=== PATIENT | male | born 1985 | race Caucasian/White ===

== ENCOUNTER 2024-05-17 05:58 | Emergency (ER) | payer BC, SELFPAY ==
[2024-05-17 06:00] VITALS: BP 140/84
[2024-05-17 06:07] VITALS: BMI 30.4
[2024-05-17 06:32] VITALS: BP 135/82
--- NOTE | 2024-05-17 06:32 | ED.GENMED ---
History of Present Illness
<Adebayo Moreno MD, Resident - Last Filed: 05/17/24 09:22>
General
Chief Complaint: Abdominal Pain
Source: patient
Time Seen by Provider: 05/17/24 06:05
History of Present Illness
History of Present Illness:
39-year-old male, Mr. Rohit Rueda presented to the ER reporting left lower quadrant pain that started a week ago. Patient reports that the pain to be intermittent, crampy, nonradiating, 2/10 in intensity and is associated with diarrhea since 1
week. Patient reports he had an episode of diverticulitis in 2020 and consequently had a perforation and he was managed conservatively with antibiotics. Patient reports that the symptoms are similar to his prior episode, and so transition to
liquid diet 4 days after symptoms started this time. Patient also reports that his stools appeared black for the past 1 week. No history of fever/chills, headache, lightheadedness, chest pain, SOB, hematuria, hematochezia. No change in the
abdominal pain and diarrhea with the diet. No history of recent travel, eating outside in the restaurant, exposure to sick contacts. Patient has a history of chronic use of NSAIDs for his neck pain and lower back pain.
Past History
<Adebayo Moreno MD, Resident - Last Filed: 05/17/24 09:22>
Social History
Tobacco: Smoker (3/4 pack/day)
Alcohol: Daily (3-5 drinks per day)
Drug: None
Personal:
Living: with family
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
Review of Systems
<Adebayo Moreno MD, Resident - Last Filed: 05/17/24 09:22>
Review of Systems
All Other Systems: ROS reviewed and negative except as documented in HPI and ROS
Phy Exam
<Adebayo Moreno MD, Resident - Last Filed: 05/17/24 09:22>
Physical Exam
Physical Exam:
GEN: Well appearing, NAD, WDWN
Eyes: PERRLA, EOMs intact, no scleral icterus
HENT: NCAT, oral mucosa moist, no JVD, no cervical adenopathy.
Lungs: CTAB, no wheezes, rales, rhonchi, normal chest wall excursion
Cardiac: RRR, no M/R/G, no peripheral edema. Radial pulses 2+ bilat
Abdomen: Soft, tender to palpation in the left lower quadrant, ND, NABS, no masses or hepatosplenomegaly, no CVAT, inguinal hernial sites�normal bilaterally.
Neuro: AO x 3, no focal deficits to BUE/BLE, normal sensation throughout
Skin: No rashes, petechiae. Normal color, no pallor or jaundice.
Psych: Calm, cooperative, proper hygiene
Course
<Veneela Souleymane Moreno MD, Resident - Last Filed: 05/17/24 09:22>
Orders/Labs/Results
Orders:
Orders
05/17/24 06:28
0.9% Sodium Chloride 250 ml [Nss] 250 ml IV BOLUS
05/17/24 06:29
CT Abd/Pel (IV only)-DH only Urgent
Comment:
Reason For Exam: Abdominal pain
05/17/24 06:32
CMP [Comprehensive Metabolic Panel] Urgent
Complete Blood Count/With Diff Urgent
05/17/24 06:37
0.9% Sodium Chloride 1000 ml [Nss] 1,000 ml IV BOLUS
Abnormal Lab Results
05/17/24
06:32
MCH 31.5 H pg
(27.0-31.0)
MPV 10.5 H fL
(7.4-10.4)
05/17/24 06:32
05/17/24 06:32
Vital Signs
Initial and Last Documented VS:
Initial Vital Signs
Temp Pulse Resp BP Pulse Ox
97.8 F 54 20 140/84 100
05/17/24 06:00 05/17/24 06:00 05/17/24 06:00 05/17/24 06:00 05/17/24 06:00
Last Documented Vital Signs
Temp Pulse Resp BP Pulse Ox
97.8 F 70 19 135/82 98
05/17/24 06:00 05/17/24 06:32 05/17/24 06:32 05/17/24 06:32 05/17/24 06:32
<Ravindra Francisco, - Last Filed: 05/17/24 06:54>
Orders/Labs/Results
Orders:
Orders
05/17/24 06:28
0.9% Sodium Chloride 250 ml [Nss] 250 ml IV BOLUS
05/17/24 06:29
CT Abd/Pel (IV only)-DH only Urgent
Comment:
Reason For Exam: Abdominal pain
05/17/24 06:32
CMP [Comprehensive Metabolic Panel] Urgent
Complete Blood Count/With Diff Urgent
05/17/24 06:37
0.9% Sodium Chloride 1000 ml [Nss] 1,000 ml IV BOLUS
Abnormal Lab Results
05/17/24
06:32
MCH 31.5 H pg
(27.0-31.0)
MPV 10.5 H fL
(7.4-10.4)
05/17/24 06:32
05/17/24 06:32
Vital Signs
Initial and Last Documented VS:
Initial Vital Signs
Temp Pulse Resp BP Pulse Ox
97.8 F 54 20 140/84 100
05/17/24 06:00 05/17/24 06:00 05/17/24 06:00 05/17/24 06:00 05/17/24 06:00
Last Documented Vital Signs
Temp Pulse Resp BP Pulse Ox
97.8 F 70 19 135/82 98
05/17/24 06:00 05/17/24 06:32 05/17/24 06:32 05/17/24 06:32 05/17/24 06:32
<Adebayo Moreno MD, Resident - Last Filed: 05/17/24 09:22>
MDM/Problems Addressed
Differential Diagnosis Includes:
Diverticulitis, gastroenteritis, IBD, IBS, upper GI bleeding from peptic ulcer disease.
MDM/Problems Addressed:
CBC-unremarkable
CMP-unremarkable
Patient started on IV fluids
CT abdomen/pelvis showed evidence of mild sigmoid diverticulitis with no perforation/abscess.
Patient is clinically stable and asymptomatic, can be discharged home.
Patient is given discharge instructions on diverticulitis and prescription for antibiotics sent to the pharmacy.
Advised to return to the ER with worsening symptoms.
Patient advised to follow-up with GI physician outpatient for melena.
<Adebayo Moreno MD, Resident - Last Filed: 05/17/24 09:22>
*Critical Care Note
Total Time (30-74mins, 75-104mins- exclusive of procedures): Not Applicable
ED Attending Note
<Adebayo Moreno MD, Resident - Last Filed: 05/17/24 09:22>
-
Portions of this chart may have been created with voice recognition software.� Occasional wrong word or��sound alike� substitutions may have occurred due to the inherent limitations of voice recognition software.
<Ravindra Francisco DO - Last Filed: 05/17/24 06:54>
ED Attending Note
Patient seen and examined by attending physician: Yes
I performed a history and physical exam of patient and discussed management with resident, I reviewed resident's note and agree with documented findings and plan of care.: Yes
ED Attending Note:
Seen with resident examined independently 39-year-old male left lower abdominal pain history of diverticulitis with perforation treated conservatively, nontoxic-appearing minimal pain also has had some black stools he states a few days ago after
some NSAID use, will check labs CT scan, ultimately may require endoscopy as an outpatient
Discharge Plan
Departure
Patient Disposition: Home (Routine Discharge)
Date of Disposition: 05/17/24
Time of Disposition: 09:11
Patient with high blood pressure during this ER visit?: No
Discharge Problem:
Diverticulitis
Instructions: Diverticulitis (DC)
Prescriptions:
New
levofloxacin 500 mg tablet
500 mg PO DAILY Qty: 10 0RF
metronidazole 500 mg tablet
500 mg PO TID Qty: 30 0RF
Referrals:
Dedra Cross MD [Active] -
Mikel Soto MD [Family Provider] -
Activity Restrictions/Additional Instructions:
Low residue diet for 2 weeks.
Start antibiotics as prescribed for 10 days.
Interventions
Interventions:
*Risk Screen - Suicide Last Done: 05/17/24 06:00
*General Assessment Last Done: 05/17/24 06:05
*Neglect/Abuse Screening Last Done: 05/17/24 06:00
ED- Fall Risk Assessment Last Done: 05/17/24 06:05
KZ-Fkluag-Evhpmikvin Assessment Last Done: 05/17/24 06:05
Discharge Date and Time
Print Language: MOSOTHO
[2024-05-17 06:39] LABS: % Basophils 0.5 % (0-2); % Eosinophils 1.2 % (0-6); % Immature Granulocytes 0.5 % (0-0.5); % Lymphocytes 42.1 % (20.5-51.1); % Monocytes 6.5 % (1.7-9.3); % Neutrophils 49.2 % (42.2-75.2); Absolute Eosinophils 0.1 10^3/uL (0-0.7); Absolute Lymphocytes 2.5 10^3/uL (1.2-3.4); Absolute Monocytes 0.4 10^3/uL (0.1-0.6); Hematocrit 47.7 % (39.0-52.0); Hemoglobin 16.5 g/dL (13.0-18.0); Mean Corp Hgb Conc. 34.6 g/dL (33.0-37.0); Mean Corpuscular Hgb 31.5 pg (27.0-31.0); Mean Platelet Volume 10.5 fL (7.4-10.4); Nucleated Red Blood Cells % 0 % (-); Platelet Count 175 10^3/uL (130-400); Red Blood Cell Count 5.24 10^6/uL (4.70-6.10); Red Cell Dist. Width 12.4 % (11.5-14.5)
[2024-05-17] MEDS: NSS 1000 IV (06:40)
[2024-05-17 06:51] LABS: ALT (SGPT) 15 U/L (0-50); AST (SGOT) 23 U/L (17-59); Albumin 4.3 g/dl (3.5-5.0); Blood Urea Nitrogen 9 mg/dl (9-20); Calcium 9.6 mg/dl (8.4-10.2); Carbon Dioxide 26 mmol/L (22-30); Estimated Creatinine Clearance > 125 ml/min; Glucose 89 mg/dl (70-99); Potassium 4.7 mmol/L (3.5-5.1); Total Bilirubin 1.1 mg/dl (0.2-1.3); Total Protein 6.8 g/dl (6.3-8.2); eGFR > 60.00
[2024-05-17 07:34] LABS: Alkaline Phosphatase 74 U/L (38-126); Chloride 104 mmol/L (98-107); Sodium 137 mmol/L (135-145)
[2024-05-17 10:09] VITALS: BP 131/69
== END 2024-05-17 10:11 | disposition home or self-care (01) ==
LOC: EMR 05:58
PROVIDERS: EMERGENCY PHYSICIAN Emergency Medicine; FAMILY PHYSICIAN Internal Medicine
DX: K57.32 Diverticulitis of large intestine without perforation or abscess without bleeding (principal); F17.210 Nicotine dependence, cigarettes, uncomplicated
CPT/HCPCS: 99285; 96360; 74177; 80053; 85025; Q9967

== ENCOUNTER 2024-12-12 06:24 | Day surgery (SDC) | payer BC, SELFPAY | END 2024-12-12 10:55 | disposition home or self-care (01) | LOC: GI 06:24 | PROVIDERS: ATTENDING PHYSICIAN Internal Medicine Gastroenterology | DX: Z12.11 Encounter for screening for malignant neoplasm of colon (principal); K57.30 Diverticulosis of large intestine without perforation or abscess without bleeding; K92.1 Melena; K22.89 Other specified disease of esophagus; K26.9 Duodenal ulcer, unspecified as acute or chronic, without hemorrhage or perforation; D12.0 Benign neoplasm of cecum; D12.2 Benign neoplasm of ascending colon; K62.1 Rectal polyp; K29.50 Unspecified chronic gastritis without bleeding; K31.89 Other diseases of stomach and duodenum; Z80.0 Family history of malignant neoplasm of digestive organs | CPT/HCPCS: 45385; 45380; 43239; 88305; 88342 ==

== ENCOUNTER 2025-02-24 06:29 | Day surgery (SDC) | payer OTHER, SELFPAY | END 2025-02-24 15:53 | disposition home or self-care (01) | LOC: GI 06:29 | PROVIDERS: ATTENDING PHYSICIAN Internal Medicine Gastroenterology | DX: K26.9 Duodenal ulcer, unspecified as acute or chronic, without hemorrhage or perforation (principal); K22.89 Other specified disease of esophagus; K31.89 Other diseases of stomach and duodenum; K26.3 Acute duodenal ulcer without hemorrhage or perforation | CPT/HCPCS: 43239; 88305 ==

== ENCOUNTER → 2025-06-25 06:48 | Outpatient (REF) | payer OTHER, SELFPAY | LOC: MRI 06:48 | PROVIDERS: ATTENDING PHYSICIAN Student in an Organized Health Care Education/Training Program; FAMILY PHYSICIAN Internal Medicine | DX: M54.16 Radiculopathy, lumbar region (principal) | CPT/HCPCS: 72148 ==

== ENCOUNTER 2025-07-13 00:33 | Emergency (ER) | payer OTHER, SELFPAY ==
[2025-07-13] VITALS (8 sets, daily range): BP systolic 120–182; BP diastolic 79–96; BMI 29.1
[2025-07-13] MEDS: TORADOL 30 MG IM (03:59)
[2025-07-13] MEDS: DECADRON 10 MG PO (04:00)
[2025-07-13] MEDS: VALIUM 5 MG PO (04:00)
--- NOTE | 2025-07-13 05:44 | ED.GENMED ---
Addendum entered and electronically signed by Rohit Price PA-C 07/13/25 07:46:
Late entry due to patient care. Made aware by nursing staff that patient's pain had not and he was unable to stand. I reevaluated the patient, L5 small disc herniation scheduled for an epidural steroid injection next week. Will give dose of
oxycodone and reassess
On reassessment approximately 1 hour post oxycodone hydration patient reported improvement was able to ambulate. Will prescribe oxycodone was advised to avoid use of cyclobenzaprine concurrently.
Original Note:
History of Present Illness
General
Chief Complaint: Back Pain
Source: patient and spouse
Exam Limitations: none
Time Seen by Provider: 07/13/25 03:32
Nursing documentation reviewed up to this point in time: agreed with
History of Present Illness
History of Present Illness:
40-year-old male presenting to the emergency department today with concerns of progressive back pain. Has known significant herniated disc at L5 and S1 does have ongoing pain to the area does have cortisone injection scheduled for next week with
his back doctor. Has noticed some comfort into his left leg more recently. Denies any changes in bowel movements or any urinary incontinence. Denies any numbness or weakness into the legs.
Past History
Social History
Tobacco: Smoker (3/4 pack/day)
Alcohol: Daily (3-5 drinks per day)
Drug: None
Personal:
Living: with family
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
Review of Systems
Review of Systems
Allergies reviewed?: Yes
All Other Systems: ROS reviewed and negative except as documented in HPI and ROS
Phy Exam
Physical Exam
Physical Exam:
GENERAL: Alert , in no apparent distress
EYE: pupils equal and reactive
NECK: Supple, no significant adenopathy.
ENT: o/p clr, mmm.
CARDIAC: Regular rate and rhythm .
LUNGS: Clear breath sounds bilaterally, no acute respiratory distress, no wheezes/rales/rhonchi
ABDOMEN: Soft, without focal tenderness, no r/g, no cvat
NEUROLOGICAL: Alert and oriented, no focal neuro deficits
SKIN: Warm and dry, skin intact.
MUSCULOSKELETAL: No edema, well perfused.
PSYCH: Normal and appropriate interaction.
Course
Orders/Labs/Results
Orders:
Orders
07/13/25 03:42
Dexamethasone [Decadron] 10 mg PO NOW STA
Diazepam [Valium] 5 mg PO NOW STA
Ketorolac [Toradol] 30 mg IM NOW STA
Vital Signs
Initial and Last Documented VS:
Initial Vital Signs
Temp Pulse Resp BP Pulse Ox
97 F 138 28 182/96 100
07/13/25 00:42 07/13/25 00:42 07/13/25 00:42 07/13/25 00:42 07/13/25 00:42
Last Documented Vital Signs
Temp Pulse Resp BP Pulse Ox
98.4 F 69 17 134/92 96
07/13/25 00:59 07/13/25 05:15 07/13/25 05:00 07/13/25 05:00 07/13/25 05:15
MDM/Problems Addressed
MDM/Problems Addressed:
40-year-old male presenting to the emergency department today with concerns of low back pain with radiation down the left leg. Here initially was tachycardic but improved after medications. Patient did have a recent MRI that I reviewed that showed
significant disc disease and chronic back problems. At this point symptoms are down the left leg with cauda equina or spinal epidural abscess. He was given medications here with significant improvement of symptoms. He was able to sleep here for
multiple hours. Otherwise return precautions given.
*Pulse Oximetry
SaO2: 96
Patient hypoxic: no (96)
*Critical Care Note
Total Time (30-74mins, 75-104mins- exclusive of procedures): Not Applicable
ED Attending Note
-
Portions of this chart may have been created with voice recognition software.� Occasional wrong word or��sound alike� substitutions may have occurred due to the inherent limitations of voice recognition software.
Discharge Plan
Departure
Patient Disposition: Home (Routine Discharge)
Date of Disposition: 07/13/25
Time of Disposition: 05:48
Patient with high blood pressure during this ER visit?: No
Condition: Good
Covid-19: Not Applicable
Discharge Problem:
Back pain
Instructions: Low Back Pain (DC)
Prescriptions:
New
cyclobenzaprine 10 mg tablet
10 mg PO HS PRN (Reason: muscle spasm) Qty: 7 0RF
prednisone 20 mg tablet
40 mg PO DAILY 4 Days Qty: 8 0RF
No Action
cyclobenzaprine 10 mg Tablet
10 mg PO HS PRN (Reason: pain)
atorvastatin 20 mg Tablet
20 mg PO DAILY
meloxicam 15 mg Tablet
15 mg PO DAILY
bupropion HCl [Wellbutrin] 100 mg Tablet
100 mg PO BID
pantoprazole [Protonix] 40 mg Tablet,Delayed Release (Dr/Ec)
40 mg PO DAILY
Referrals:
Tang Adam MD [Family Provider, Internal Medicine]
Activity Restrictions/Additional Instructions:
You came to the emergency department today with concerns of ongoing back discomfort. Here you were started on a steroid as muscle relaxer. Please take these medications and follow-up closely with your back doctor. Return for any worsening, new or
concerning symptoms.
Interventions
Interventions:
*Risk Screen - Suicide Last Done: 07/13/25 00:42
*General Assessment Last Done: 07/13/25 00:52
*Neglect/Abuse Screening Last Done: 07/13/25 00:42
*ED- Fall Risk Assessment Last Done: 07/13/25 00:52
*ED COVID-19 Vaccine History Last Done: 07/13/25 00:52
*ED Influenza Vaccine History Last Done: 07/13/25 00:52
ED-Musculoskeletal Assessment Last Done: 07/13/25 00:52
Discharge Date and Time
Print Language: TURKMEN
[2025-07-13] MEDS: ROXICODONE 5 MG PO (06:36)
--- NOTE | 2025-07-13 06:42 | EDRN ---
This RN was assisting patient to prepare for discharge and into wheeelchair when patient had episode of severe back pain radiating down into left leg. Pt grimacing and in obvious pain. pt states he is uncomfortable going home in this amount of pain
and would like to get back into bed. JENSEN Boles notified and comes to bedside to evaluate patient. Plan is to receive oxycodone and reevaluate in an hour. If not resolved, possibility of being admitted.
== END 2025-07-13 07:53 | disposition home or self-care (01) ==
LOC: EMR 00:33
PROVIDERS: EMERGENCY PHYSICIAN Emergency Medicine; FAMILY PHYSICIAN Internal Medicine
DX: M54.50 Low back pain, unspecified (principal); F17.210 Nicotine dependence, cigarettes, uncomplicated; Z87.39 Personal history of other diseases of the musculoskeletal system and connective tissue
CPT/HCPCS: 96372; 99284

== ENCOUNTER 2025-07-23 18:20 | Observation (INO) | payer OTHER, SELFPAY ==
[2025-07-23 13:20] VITALS: BP 162/102
[2025-07-23 16:00] VITALS: BP 122/70
[2025-07-23] MEDS: TORADOL 30 MG IV (16:01)
[2025-07-23] MEDS: DECADRON 10 MG IV (16:01)
[2025-07-23] MEDS: DILAUDID 1 MG IV ×2 (16:02→17:51)
--- NOTE | 2025-07-23 16:20 | ED.GENMED ---
History of Present Illness
General
Chief Complaint: Back Pain
Source: patient, records, spouse and previous radiology exam
Exam Limitations: none
Time Seen by Provider: 07/23/25 14:56
Nursing documentation reviewed up to this point in time: agreed with
History of Present Illness
History of Present Illness:
40-year-old male acute on chronic low back pain left side into his buttock, had MRI recently showed herniated disc, seen in the ER had steroid pack and some oxycodone with some relief, followed up at [facility] had an epidural steroid injection told to
get appoint with the surgeon has not had that yet, no fevers, having trouble with activities of daily living, but no bowel or bladder incontinence he states he is not sure if he is totally emptying his bladder though, denies fevers
Past History
Social History
Tobacco: Smoker (3/4 pack/day)
Alcohol: Daily (3-5 drinks per day)
Drug: None
Personal:
Living: with family
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
Phy Exam
Physical Exam
Physical Exam:
Physical Exam
General: no apparent distress, not acutely ill
Neck: No jaundice
Heart: s1/s2 regular rate and rhythm, no murmur. equal radial pulses.
Lungs: no acute respiratory distress. clear bilaterally
Neuro: alert and oriented. Painful straight leg raise on the left at 30 degrees, deep tendon reflexes are equal
Skin: no rash
Psychiatric: well kept. interactive and cooperative
Extremities: no edema.
Course
Orders/Labs/Results
Orders:
Orders
07/23/25 15:19
Bladder Scan- Treatment ONCE
Dexamethasone Sod Phosphate [Decadron] 10 mg IV NOW STA
HYDROmorphone [Dilaudid] 1 mg IV NOW STA
Ketorolac [Toradol] 30 mg IV NOW STA
07/23/25 17:16
Urinalysis Reflex To Culture Urgent
Date Specimen was Collected: 07/23/25
Time Specimen was Collected: 17:14
Urine Microscopic Reflex Cult Urgent
07/23/25 17:23
HYDROmorphone [Dilaudid] 1 mg IV NOW STA
Ondansetron Injectable [Zofran] 4 mg IV NOW STA
Abnormal Lab Results
07/23/25
17:16
Urine Ketones 2+ A
(Negative)
Urine Albumin (Reflex) 1+ A
(Neg - Trace)
Vital Signs
Initial and Last Documented VS:
Initial Vital Signs
Temp Pulse Resp BP Pulse Ox
97.9 F 105 18 162/102 99
07/23/25 13:20 07/23/25 13:20 07/23/25 13:20 07/23/25 13:20 07/23/25 13:20
Last Documented Vital Signs
Temp Pulse Resp BP Pulse Ox
97.9 F 66 18 122/70 99
07/23/25 13:20 07/23/25 16:00 07/23/25 16:00 07/23/25 16:00 07/23/25 16:20
MDM/Problems Addressed
Differential Diagnosis Includes:
Radiculopathy herniated disc acute on chronic back pain
MDM/Problems Addressed:
Back pain
Chronic conditions affecting care:
Back pain
Acute Exacerbation and/or Progression of Chronic Illness:
Back pain
*Radiology
Radiology exam reviewed: radiology read reviewed
*Pulse Oximetry
SaO2: 99
Oxygen Mode of Delivery: Room air
Patient hypoxic: no
*Critical Care Note
Total Time (30-74mins, 75-104mins- exclusive of procedures): Not Applicable
Update Note
Update Note:
Update, MRI report reviewed, will try to get him feeling better,
Will try to facilitate outpatient spine surgery follow-up
542p update patient still with pretty severe pain despite steroids IV Dilaudid
ED Attending Note
-
Portions of this chart may have been created with voice recognition software.� Occasional wrong word or��sound alike� substitutions may have occurred due to the inherent limitations of voice recognition software.
Discharge Plan
Departure
Patient Disposition: Home (Routine Discharge)
Date of Disposition: 07/23/25
Time of Disposition: 17:16
Patient with high blood pressure during this ER visit?: No
Condition: Good
Covid-19: Not Applicable
Discharge Problem:
Low back pain
Instructions: Low Back Pain (DC), Radiculopathy (DC)
Prescriptions:
New
oxycodone 10 mg tablet
10 mg PO Q4H PRN (Reason: Pain) Qty: 20 0RF
No Action
cyclobenzaprine 10 mg Tablet
10 mg PO HS PRN (Reason: pain)
atorvastatin 20 mg Tablet
20 mg PO DAILY
meloxicam 15 mg Tablet
15 mg PO DAILY
bupropion HCl [Wellbutrin] 100 mg Tablet
100 mg PO BID
pantoprazole [Protonix] 40 mg Tablet,Delayed Release (Dr/Ec)
40 mg PO DAILY
cyclobenzaprine 10 mg tablet
10 mg PO HS PRN (Reason: muscle spasm) Qty: 7 0RF
prednisone 20 mg tablet
40 mg PO DAILY 4 Days Qty: 8 0RF
oxycodone 5 mg tablet
5 mg PO Q8H PRN (Reason: Pain) Qty: 10 0RF
Referrals:
Tang Adam MD [Family Provider, Internal Medicine]
José Manuel Emmanuel MD [Active, Orthopedics] - Next open appointment
Interventions
Interventions:
*Risk Screen - Suicide Last Done: 07/23/25 13:21
*General Assessment Last Done: 07/23/25 13:21
*Neglect/Abuse Screening Last Done: 07/23/25 13:21
*ED COVID-19 Vaccine History Last Done: 07/23/25 13:21
*ED Influenza Vaccine History Last Done: 07/23/25 13:21
ED-Musculoskeletal Assessment Last Done: 07/23/25 14:48
Discharge Date and Time
Print Language: ESTONIAN
[2025-07-23 17:29] LABS: Urine Character Clear (Clear)
[2025-07-23 17:41] LABS: Urine Red Blood Cell 0-2 /HPF (0-2); Urine White Cell 0-2 /HPF (0-5)
--- NOTE | 2025-07-23 17:46 | W.PN.UPDATE ---
Update Note
Progress Note Update
TThis note serves as an addendum to the H&P by dental front office assistant ELLA�
Sonia Flintstone
HPI
40M Current smoker , Daily ETOF use disorder HX Chr LBP , recemt MRI as of 06/25 POS for L4/5 herniated disc wiht Lt L5 root displacememt. He was seen at ER initiated medrol dose pack and Oxycodone, s/p EST with Papa and pending for appointment
with spine surgeon.
- seen at ER due to ADL dysfunction
- denied B & B incontinence
- No fever
Relevant VS
Temp Pulse Resp BP Pulse Ox
97.9 F 66 18 122/70 99
07/23/25 13:20 07/23/25 16:00 07/23/25 16:00 07/23/25 16:00 07/23/25 16:20
PE
Gen: NAD
HEENT: anicteric
Neck: supple
Lungs: CTA
Cor: RR S1 S2
Abdomen:�soft NT NG
ACTIVITIES COUNSELOR: POS Lt SLR at 30 degreee. Intact b/l and symmetric DTR
MS: no motor weakness
Relevant Data
06/25/25 MR Lumbar Without Contrast
- At L4/5, there is a broad-based disc protrusion centered in the left paracentral region.
This measures 7 mm in diameter. this causes moderate flattening of thecal sac and posterior displacement of left L5 nerve root. In addition, there is extruded disc material tracking superiorly from the disc space in the left paracentral region.
Extruded disc material measures 1.2 cm in AP diameter. It causes severe flattening of thecal sac and interacts with the left L4 nerve root. Superimposed annular bulge and facet osteoarthritis combine to cause moderate bilateral foraminal stenosis
At L5/S1, there is a broad-based disc protrusion centered in the midline. This measures 6 mm in diameter. It causes moderate flattening of thecal sac. It contacts medial aspect of each S1 nerve root. Superimposed annular bulge and facet
osteoarthritis combine to cause moderate left foraminal stenosis
NO PRIOR hospitalist admission:
ASSESSMENT & PLAN
L4/5 Herniated disc with posterior displacement of left L5 nerve root with with Lt sided radiculopathy
Intractable LBP despite S/p Medrol dose pack + L4/5 EPS on 07/17/25
- POS Lt SLR @ 30 degree
- partially emptying bladder
- ADL dysfunction
- Bladder scan protocol
- Prednisone short tapering course:
- 60mg daily for 5 days then taper
- 40 mg daily for 2 days
- 20mg daily for 2 days
- 10mg daily for 2 days
- PRN Analgesia per pain ladder
- BW regime
- on SYSTEMS SUPPORT SPECIALIST PO PPI
- N Surgery consulted
ETOH use disorder
- Daily 2-3 drinks twice per weel - last drink was 2 weeks ago
- Observe WDS
Nicotine use disorder - 1/2 PPD
- quit 2 weeks ago
HX Diverticulitis with microperforation
DVT Px: SQH
Full
OBS MS
--- NOTE | 2025-07-23 17:49 | HPS.HSE ---
Family Physician
-
Family Physician: Tang Adam MD
Chief Complaint
-
Back pain lumbar left buttocks down to left ankle
History of Present Illness
40-year-old male complaining of acute on chronic lower back pain left-sided to his buttocks. He had outpatient MRI showing herniated disc had been seen in the ER on 07/13/2025 given steroid pack and oxycodone with some relief. He reports following
up at [facility] had an epidural steroid injection on 07/17/2025 but was advised to get appointment with a surgeon to address his herniated disc. 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 He states he has been lying on his back at home unable to do anything due to the pain. He denies bowel or bladder loss, fever, chills, chest pain, palpitations, shortness breath, cough, abdominal pain, nausea, vomiting, diarrhea.
He has past medical history of herniated disc, former smoker, diverticulitis with micro Perf, gastric ulcers, depression, HLD.
Medical History
Past Medical History
Past Medical History: Reports Other
Additional Past Medical History:
herniated disc
former smoker
diverticulitis with micro Perf
gastric ulcers
depression
HLD
Past Surgical History: Reports Other
Additional Past Surgical History:
Tonsillectomy
Colonoscopy
Endoscopy
Social History
Tobacco: Former Smoker (Half a pack a day x 25 years quit 3 weeks ago June 2025)
Alcohol: Occasional (2-3 drinks 2 to 3 days a week last drink was 2 weeks ago)
Personal:
Living: With Family
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
Family History
Family History: Other (Mother history of skin cancer diverticulitis, father history of diverticulitis)
Allergies / Home Medications
Allergies reflects when Allergies were last updated in [facility].
Home Medications with original date entered in [facility]
Allergy/Medication List:
Allergies
Allergy/AdvReac Type Severity Reaction Status Date / Time
No Known Allergies Allergy Verified 07/23/25 13:20
Home Medications
atorvastatin 20 mg tablet 20 mg PO DAILY High Cholesterol 07/13/25
cyclobenzaprine 10 mg tablet 10 mg PO HS mild pain 07/13/25
meloxicam 15 mg tablet 15 mg PO QPM mild pain 07/13/25
pantoprazole 40 mg tablet,delayed release (Protonix) 40 mg PO DAILY gerd 07/13/25
acetaminophen 500 mg tablet (Tylenol Extra Strength) 500 mg PO Q6HPRN PRN mild pain 07/23/25
bupropion HCl 150 mg 24 hr tablet, extended release (Wellbutrin XL) 150 mg PO DAILY Depression 07/23/25
oxycodone 5 mg tablet 5 mg PO Q8HPRN PRN severe Pain 07/23/25
simethicone 80 mg chewable tablet 160 mg PO DAILYPRN PRN gas pains 07/23/25
Review of Systems
-
History Source: Patient and Family
A 12 point ROS was completed and negative except as noted: Yes
Constitutional: Denies Fever or Chills
EENT: Denies Sore Throat or Runny Nose
Respiratory: Denies Cough or Trouble Breathing
Cardiac: Denies Chest Pain, Diaphoresis, Palpitations or Syncope
Abdomen/GI: Denies Abdominal Pain, Nausea, Vomiting, Diarrhea, Constipated or Bloody Stools
: Reports Difficulty Voiding; Denies Dysuria, Frequency, Flank Pain, Incontinence, Urgency or Bleeding
Musculoskeletal: Reports Other (Pain left buttocks down to left leg); Denies Joint Pain or Edema
Skin: Denies Itching or Rash
Neurological: Denies Dizzy, Headache or Weakness
Endocrine: Reports No Symptoms
Hematologic/Lymphatic: Reports No Symptoms
Psych: Reports Calm
Physical Exam
Vital Signs
Vital Signs
Temp Pulse Resp BP Pulse Ox
97.9 F 66 18 122/70 99
07/23/25 13:20 07/23/25 16:00 07/23/25 16:00 07/23/25 16:00 07/23/25 16:20
Physical Exam
General: Conversant; No Fever or Chills
HEENT: NormoCephalic, Anicteric, Moist mucous membranes, PERRLA, Fabrica Conjunctivae and No Ptosis
Respiratory: Clear; No Wheezes, Rales or Rhonchi
Cardiac: S1/S2 and Regular Rhythm; No Murmur, Rub, Gallop or Peripheral Edema
Breast: Deferred by me
GI: Soft, Non Tender, Non Distended, Normal Bowel Sounds and No Hepatosplenomegaly
Rectal: Deferred by Provider
Genito-urinary: Deferred by me
Musculoskeletal: No Clubbing, No Cyanosis, No Edema and Other (Tenderness left buttocks radiating down to ankle, sensation intact distal neurovascular +2 pedal pulse, +2 cap refill, limited leg lifting moving due to lower back/buttocks pain
left-sided)
Skin: Warm and Dry; No Rash
Neuro: AO x 3, Nonfocal/grossly intact, Cranial Nerves Intact and No Sensory Deficits; No Slurred Speech, Facial Droop, Tremors or Sedated
Psych: Calm
Data Reviewed
-
MRI: Report Reviewed by me
Lab Data: Labs Reviewed by me
Impression/Plan
-
Impression/plan:
Observation MedSurg
#Acute on chronic lower back pain left-sided secondary to herniated disc L4-L5, L5-S1 with slight urinary retention
-Status post lumbar epidural steroid injection 07/17/2025 by Papa
- Consult neurosurgery�Dr. Stafford
- IV Dilaudid, continue oxycodone 5 mg every 8 hours as needed, continue patient's Flexeril IV Zofran, bowel regimen
- IV dexamethasone 10 mg given in ER
- prednisone 60 mg x 5, 50mg x 5, 40mg x 5, 30mg x 5, 20mg x 5, 10mg x 5
-Continue patient's Protonix 40 mg daily
-Bladder scan protocol voided in ER residual bladder scan 300 cc
MRI 06/26/2025:At L4/5, there is a broad-based disc protrusion centered in the left paracentral region. This measures 7 mm in diameter. this causes moderate flattening of thecal sac and posterior displacement of
left L5 nerve root. In addition, there is extruded disc material tracking superiorly from the disc space in the left paracentral region.
Extruded disc material measures 1.2 cm in AP diameter. It causes severe flattening of thecal sac and interacts with the left L4 nerve root.
Superimposed annular bulge and facet osteoarthritis combine to cause moderate bilateral foraminal stenosis
At L5/S1, there is a broad-based disc protrusion centered in the midline. This measures 6 mm in diameter. It causes moderate flattening of thecal sac.
It contacts medial aspect of each S1 nerve root. Superimposed annular bulge and facet osteoarthritis combine to cause moderate left foraminal stenosis
#Former smoker
Quit approximately 3 weeks ago prior half a pack a day
#History gastric ulcer
-Continue Protonix 40 mg daily
#Depression
-Continue Wellbutrin 150 mg daily
#HLD
Atorvastatin 20 mg daily
#History of diverticulitis with microperforation
DVT prophylaxis
Subcu heparin
Full code
[2025-07-23] MEDS: ZOFRAN 4 MG IV (17:51)
[2025-07-23 20:00] VITALS: BP 141/68
[2025-07-23 21:44] VITALS: BP 141/96; BMI 27.9
[2025-07-23] MEDS: FLEXERIL 10 MG PO (22:16)
[2025-07-23] MEDS: HEPARIN 5000 UNITS SC (22:16)
--- NOTE | 2025-07-23 23:05 | PTCARENOTE ---
Receive pt from ER. Pt alert oriented X3, calm in no distress. Pt assisted to bed from wheelchair to bed in the room using a cane. Pt oriented to the room, call rojas within reach. Pt states that his back pain is tolerable now (2/10). Pt also states
that the ice pack is helping with the pain.VSS (T=98.1, HR=93, RR=16, CP=157/96, SpO2=96% on RA). Will continue to monitor the pt.
[2025-07-23 23:15] VITALS: BP 139/96
--- NOTE | 2025-07-23 23:28 | PTCARENOTE ---
Pt voids 450cc, bladder scan shows 77cc post void. Pt offers no complaints at this time.
[2025-07-24] MEDS: ROXICODONE 5 MG PO ×2 (00:36→10:37)
[2025-07-24] MEDS: DILAUDID 1 MG IV (05:35)
[2025-07-24 07:28] VITALS: BP 125/81
[2025-07-24] MEDS: MIRALAX 17 GRAMS PO (09:17)
[2025-07-24] MEDS: TYLENOL 650 MG PO (09:18)
[2025-07-24] MEDS: LIPITOR 20 MG PO (09:18)
[2025-07-24] MEDS: PROTONIX 40 MG PO (09:18)
[2025-07-24] MEDS: DELTASONE 60 MG PO (09:18)
[2025-07-24] MEDS: WELLBUTRIN XL (24 hour extended release) 150 MG PO (09:18)
[2025-07-24] MEDS: HEPARIN 5000 UNITS SC ×2 (09:19→21:49)
[2025-07-24 09:40] LABS: ALT (SGPT) 24 U/L (0-50); AST (SGOT) 20 U/L (17-59); Albumin 4.4 g/dl (3.5-5.0); Alkaline Phosphatase 60 U/L (38-126); Blood Urea Nitrogen 12 mg/dl (9-20); Calcium 9.5 mg/dl (8.4-10.2); Carbon Dioxide 26 mmol/L (22-30); Chloride 104 mmol/L (98-107); Estimated Creatinine Clearance 120 ml/min; Glucose 102 mg/dl (70-99); Potassium 5.1 mmol/L (3.5-5.1); Sodium 137 mmol/L (135-145); Total Protein 7.1 g/dl (6.3-8.2); eGFR > 60.00
[2025-07-24 09:43] LABS: Hematocrit 48.4 % (39.0-52.0); Hemoglobin 16.6 g/dL (13.0-18.0); Mean Corp Hgb Conc. 34.3 g/dL (33.0-37.0); Mean Corpuscular Volume 87.5 fL (80.0-94.0); Nucleated Red Blood Cells % 0 % (-); Platelet Count 221 10^3/uL (130-400); Red Cell Dist. Width 12.1 % (11.5-14.5)
--- NOTE | 2025-07-24 09:56 | W.PN.HOSP.TC ---
Today's Communication/Plan
-
Tylenol 1 gm TID
f/w neurosurgery recommendations
Assessment / Plan
Assessment / Plan
#Acute on chronic lower back pain left-sided secondary to herniated disc L4-L5, L5-S1 with slight urinary retention
Pain is controlled with medications
No urinary retention
No fever
No leukocytosis but expect WBC to go up after steroid
No worsening numbness in left lower extremity
-Status post lumbar epidural steroid injection 07/17/2025 by Papa
- Consulted neurosurgery�DrFlorina Peace aware
- IV Dilaudid, continue oxycodone 5 mg every 8 hours as needed, continue patient's Flexeril IV Zofran, bowel regimen
- IV dexamethasone 10 mg given in ER
- prednisone 60 mg x then taper.
-Continue patient's Protonix 40 mg daily
-Bladder scan protocol voided in ER residual bladder scan 300 cc
#Former smoker
Quit approximately 3 weeks ago prior half a pack a day
#History gastric ulcer
-Continue Protonix 40 mg daily
#Depression
-Continue Wellbutrin 150 mg daily
#HLD
Atorvastatin 20 mg daily
#History of diverticulitis with microperforation
DVT prophylaxis
Subcu heparin
Total time spent to see the patient, examine the patient, review data and lab results, discuss treatment plan with patient, nursing staff around 55 minutes
Anticipated Discharge: 24 - 48 hours
Subjective/Interval History
-
Date of Service: July 24, 2025
He reports controlled pain with medications
Objective Data
-
Labs:
Laboratory Results
07/24/25
08:02
WBC 9.9
Hgb 16.6
Hct 48.4
Plt Count 221
Sodium 137
Potassium 5.1
Chloride 104
Carbon Dioxide 26
BUN 12
Creatinine 0.8
Glucose 102 H
Calcium 9.5
Total Bilirubin 0.7
AST 20
ALT 24
Alkaline Phosphatase 60
Vital Signs:
Vital Signs
Temp Pulse Resp BP Pulse Ox
97.6 F 71 12 125/81 96
07/24/25 07:28 07/24/25 07:28 07/24/25 07:28 07/24/25 07:28 07/24/25 07:28
I&O
07/23/25 07/24/25 07/25/25
06:59 06:59 06:59
Intake Total 480 / 480
Output Total 1050 / 1050
Balance -570 / -570
Physical Exam
-
General: Well Developed, No Apparent Distress and Comfortable
HEENT: Atraumatic and Moist Mucous Membranes
Respiratory: Clear to Auscultation
Cardiac: Regular Rhythm and S1/S2
GI: Nontender and Nondistended
Genito-urinary: Negative Crawford
Musculoskeletal: No Cyanosis and No Edema
Neuro: AO x 3 and Other (Reports LLE numbness ( chronic) )
Psych: Calm and Intact Judgement/Insight
[2025-07-24 14:47] VITALS: BP 138/89; PULSE 107; O2SAT 96
[2025-07-24 14:56] VITALS: BP 138/89; PULSE 97; O2SAT 96
[2025-07-24 15:20] VITALS: BP 128/87
--- NOTE | 2025-07-24 15:54 | CON.NS ---
Consultation
-
Date/Time Consultation Performed: 07/24/2025
Chief Complaint
-
Left leg pain
History of Present Illness
40-year-old male admitted from the emergency room last evening for worsening left leg pain. As well as intermittent urinary issues. He has had 3 to 4 weeks of severe amounts of the left leg pain. Had an outpatient MRI which showed a new large
left-sided L4-5 disc herniation. His pain radiates in an L5 distribution. His pain is fully controlled on current pain regimen in the hospital. He has no weakness. He has been debilitated for the past month with the symptoms. He recently had an
epidural steroid injection on 07/17/2025. He has numbness and tingling currently in his anterior duque.
Review of Systems
-
10 point review of systems was completed is negative septa stated in HPI
Medication and Allergies
Home Medications
Home Medications
�Medication �Instructions �Recorded
atorvastatin 20 mg tablet 20 mg PO DAILY High Cholesterol 07/13/25
cyclobenzaprine 10 mg tablet 10 mg PO HS mild pain 07/13/25
meloxicam 15 mg tablet 15 mg PO QPM mild pain 07/13/25
pantoprazole 40 mg tablet,delayed 40 mg PO DAILY gerd 07/13/25
release (Protonix)
acetaminophen 500 mg tablet 500 mg PO Q6HPRN PRN mild pain 07/23/25
(Tylenol Extra Strength)
bupropion HCl 150 mg 24 hr tablet, 150 mg PO DAILY Depression 07/23/25
extended release (Wellbutrin XL)
oxycodone 5 mg tablet 5 mg PO Q8HPRN PRN severe Pain 07/23/25
simethicone 80 mg chewable tablet 160 mg PO DAILYPRN PRN gas pains 07/23/25
Allergies
Allergies
Allergy/AdvReac Type Severity Reaction Status Date / Time
No Known Allergies Allergy Verified 07/23/25 13:20
Physical Exam
-
Exam:
Awake and alert and oriented
Speech is fluent and clear
Motor strength testing reveals 5-5 upper and lower extremity strength.
Mild decrease sensation along the anterior duque
MRI of the lumbar spine was personally interpreted by me from 06/25/2025 shows large L4-5 disc herniation on the left side as well as an L5-S1 central disc herniation which is eccentric off to the right
Problems
-
Problem Status Onset Code
Low back pain Acute M54.50
Assessment / Plan
-
Lumbar radiculopathy secondary to L4-5 disc herniation
1. Pain is controlled with current regiment
2. No acute neurosurgical interventions patient does not have any weakness
3. If pain can be controlled with oral pain medications patient is okay to discharge and follow-up in the office this week
4. I believe patient ultimately will require an operation L4-5 consisting of an L4-5 microdiscectomy. We discussed surgical versus nonsurgical management of his disc herniation.
5. Case was discussed with hospital service, total 60 minutes was spent: Reviewing the chart, speaking with primary service, documenting in the chart, discussing with the patient
--- NOTE | 2025-07-24 16:53 | CM ---
IA completed. Lives with and 2 children in a multilevel home with 2 steps to the entrance and 13 steps interiorly. Prior to 2 weeks ago he was independent with ADL and IADLs. HE\\e now needs assistance with these things. No DME hx,O2,SNF or HH.
No insecurities identified.
Confirmed PCP, Rx and insurance
PCP: Tang Velasco
RX: PATRICIO/[facility]
Plan: Home, no needs
[2025-07-24] MEDS: TYLENOL 1000 MG PO ×2 (17:13→21:49)
[2025-07-24] MEDS: FLEXERIL 5 MG PO (21:48)
[2025-07-24] MEDS: SENOKOT-S 1 TABLET PO (22:02)
[2025-07-24 23:09] VITALS: BP 130/92
[2025-07-25] MEDS: ROXICODONE 5 MG PO ×2 (05:22→07:41)
[2025-07-25 07:40] VITALS: BP 132/96
[2025-07-25] MEDS: LIPITOR 20 MG PO (07:41)
[2025-07-25] MEDS: PROTONIX 40 MG PO (07:41)
[2025-07-25] MEDS: WELLBUTRIN XL (24 hour extended release) 150 MG PO (07:41)
[2025-07-25] MEDS: TYLENOL 1000 MG PO (07:41)
[2025-07-25] MEDS: DELTASONE 40 MG PO (07:42)
[2025-07-25] MEDS: HEPARIN SC (07:44)
--- NOTE | 2025-07-25 11:04 | W.PN.HOSP.TC ---
Today's Communication/Plan
-
DC early to make his appointment this morning at 9 am with ortho.
Assessment / Plan
Assessment / Plan
Physical Exam
-
General: Well Developed, No Apparent Distress and Comfortable
HEENT: Atraumatic and Moist Mucous Membranes
Respiratory: Clear to Auscultation
Cardiac: Regular Rhythm and S1/S2
GI: Nontender and Nondistended
Genito-urinary: Negative Crawford
Musculoskeletal: No Cyanosis and No Edema
Neuro: AO x 3 and Other (Reports LLE numbness ( chronic) ) Gait is good.
Psych: Calm and Intact Judgement/Insight
#Acute on chronic lower back pain left-sided secondary to herniated disc L4-L5, L5-S1 with slight urinary retention
Pain is controlled with medications
No urinary retention
No fever
No leukocytosis
No worsening numbness in left lower extremity
-Status post lumbar epidural steroid injection 07/17/2025 by Papa'
Seen by Dr. Peace , recommended pain control, OP follow- up in office.
Patient and obtained an appointment with Dr Emmanuel also on 07/25 at 9 am, they wanted to keep the appointment/ will see Dr Peace in office also.
D/w pt about pain regimen, will give Oxycodone 5 mg and advised to use Tylenol first then use 5 mg. Patient was counseled about safe use of narcotic, he had oxycodone before.
Taper prednisone at home. Advised to cut back on Flexeril as 10 mg dose can cause drowsiness.
Dr. Emmanuel also was informed about discharge planning and medications.
#Former smoker
Quit approximately 3 weeks ago prior half a pack a day
#History gastric ulcer
-Continue Protonix 40 mg daily
#Depression
Mood is cooperative
-Continue Wellbutrin 150 mg daily
#HLD
Atorvastatin 20 mg daily
#History of diverticulitis with microperforation
DVT prophylaxis
Subcu heparin
Total discharge time spent to see the patient, examine the patient, review data and lab results, discuss discharge plan with patient, nursing staff around 65 minutes
Anticipated Discharge: Today
Subjective/Interval History
-
Date of Service: July 25, 2025
Seen earlier
5 mg oxy worked for him, did not need IV Dilaudid, c/w Tylenol
No chest pain, no sob, no abd pain, no urinary retention
Objective Data
-
Vital Signs:
Vital Signs
Temp Pulse Resp BP Pulse Ox
97.9 F 89 18 132/96 98
07/25/25 07:40 07/25/25 07:40 07/25/25 07:40 07/25/25 07:40 07/25/25 07:40
I&O
07/24/25 07/25/25 07/26/25
06:59 06:59 06:59
Intake Total 480 / 480 1200 / 1200
Output Total 1050 / 1050
Balance -570 / -570 1200 / 1200
--- NOTE | 2025-07-25 11:10 | W.DCSUMMARY ---
Discharge Summary
Discharge Data
Date of Admission: 07/23/25
Date of Discharge: 07/25/25
-
Pending Results: No
Hospital Course
40 years old male presented with worsening left lower extremity pain. Patient reported history of chronic back problems with left lower extremity pain and numbness. He was following with [facility] orthopedic in the outpatient setting. He had an
outpatient MRI that showed left-sided L4/5 disc herniation. He had an epidural steroid injection on July 17, 2025. He reported that his pain did not improve and was presented to the hospital. He did not have leukocytosis or fever. He had mild
urinary issue but no retention in the hospital. Patient was started on pain control regimen with Tylenol, oxycodone. He received intravenous Dilaudid. Neurosurgery was consulted. Neurosurgery recommended pain control and outpatient follow-up for
possible L4/L5 surgical intervention/microdiscectomy. Pain became better controlled. He was evaluated by physical therapy. Patient did not require IV Dilaudid. Patient obtained an outpatient follow-up with [facility] orthopedic Dr. Emmanuel. Patient
wanted to follow-up with his doctor as an outpatient setting. He remained hemodynamically stable and was discharged in a stable condition..
Discharge Plan
-
Patient Disposition: Home (Routine Discharge)
Discharge Diagnosis/Procedures: Acute Lumbar radiculopathy secondary to L4-5 disc herniation
You were seen by neurosurgery. Recommend outpatient follow-up.
Oxycodone, narcotic can cause drowsiness, constipation, nausea and dependency. Avoid taking oxycodone while driving or operating machines.
Diet: As tolerated
Referrals:
Tang Adam MD [Family Provider, Internal Medicine]
Bong Peace DO [Active, Neurosurgery] - in less than 1 week
José Manuel Emmanuel MD [Active, Orthopedics] - 07/25/25 9:00 am
Prescriptions:
New
acetaminophen [Tylenol Extra Strength] 500 mg Tablet
1,000 mg PO TID Qty: 10 0RF
oxycodone 5 mg Tablet
5 mg PO Q8HPRN PRN (Reason: moderate to severe pain) Qty: 20 0RF
prednisone 10 mg tablet
10 mg PO DAILY Qty: 12 0RF
Rx Instructions:
30 mg X2 days, 20 mg X2 days, 10 mg X 2 days
Continued
cyclobenzaprine 10 mg Tablet
10 mg PO HS
atorvastatin 20 mg Tablet
20 mg PO DAILY
meloxicam 15 mg Tablet
15 mg PO QPM
pantoprazole [Protonix] 40 mg Tablet,Delayed Release (Dr/Ec)
40 mg PO DAILY
simethicone 80 mg Tablet,Chewable
160 mg PO DAILYPRN PRN (Reason: gas pains)
bupropion HCl [Wellbutrin XL] 150 mg Tablet Extended Release 24 Hr
150 mg PO DAILY
Discontinued
acetaminophen [Tylenol Extra Strength] 500 mg Tablet
500 mg PO Q6HPRN PRN (Reason: mild pain)
oxycodone 5 mg tablet
5 mg PO Q8HPRN PRN (Reason: severe Pain)
Discharge Orders:
Discharge Patient (As Directed); Ordered 07/25/25
Ordered By: Lane Caro
Discharge Date and Time
Discharge Date/Time: 07/25/25 08:00
Print Language: TURKMEN
== END 2025-07-25 08:00 | disposition home or self-care (01) ==
LOC: 4 EAST ACU 18:20
PROVIDERS: Clinical Nurse Specialist Family Health; ADMITTING PHYSICIAN Internal Medicine; ATTENDING PHYSICIAN Internal Medicine; CONSULT PHYSICIAN Neurological Surgery; EMERGENCY PHYSICIAN Emergency Medicine; FAMILY PHYSICIAN Internal Medicine
DX: M51.16 Intervertebral disc disorders with radiculopathy, lumbar region (principal); M54.9 Dorsalgia, unspecified; F17.210 Nicotine dependence, cigarettes, uncomplicated; G89.29 Other chronic pain; E78.5 Hyperlipidemia, unspecified; M51.27 Other intervertebral disc displacement, lumbosacral region; M47.817 Spondylosis without myelopathy or radiculopathy, lumbosacral region; M48.061 Spinal stenosis, lumbar region without neurogenic claudication; F32.A Depression, unspecified; F10.10 Alcohol abuse, uncomplicated; R33.9 Retention of urine, unspecified; Z90.89 Acquired absence of other organs; M79.605 Pain in left leg; Z87.19 Personal history of other diseases of the digestive system; Z79.899 Other long term (current) drug therapy; Z79.1 Long term (current) use of non-steroidal anti-inflammatories (NSAID); Z79.891 Long term (current) use of opiate analgesic; Z87.11 Personal history of peptic ulcer disease; Z83.79 Family history of other diseases of the digestive system; Z80.8 Family history of malignant neoplasm of other organs or systems
CPT/HCPCS: 80053; 81003; 81015; 85025; 87086; 96374; 96375; 96376; 97116; 97162; 97166; 99285; G0378